=== PATIENT | female | born 1950 | race Caucasian/White ===

== ENCOUNTER → 2020-06-19 | Outpatient (CLI) | payer MEDICARE, OTHER | LOC: HEART 5 06-07 14:30 → CATH 10:00 | DX: R55 Syncope and collapse (principal) ==

== ENCOUNTER → 2020-11-14 | Outpatient (CLI) | payer MEDICARE | LOC: MAMO 10:18 | DX: Z12.31 Encounter for screening mammogram for malignant neoplasm of breast (principal); E04.1 Nontoxic single thyroid nodule | CPT/HCPCS: 76536; 77063; 77067 ==

== ENCOUNTER → 2020-11-17 | Outpatient (CLI) | payer MEDICARE, OTHER | LOC: EXRD 11:32 | DX: R06.02 Shortness of breath (principal) | CPT/HCPCS: 71046 ==

== ENCOUNTER → 2021-08-09 | Outpatient (CLI) | payer MEDICARE, OTHER | LOC: RAD 16:11 | DX: M25.562 Pain in left knee (principal); M25.462 Effusion, left knee | CPT/HCPCS: 73562 ==

== ENCOUNTER → 2021-11-15 | Outpatient (CLI) | payer MEDICARE, OTHER | LOC: US 07:33 | DX: R10.9 Unspecified abdominal pain (principal); R11.0 Nausea | CPT/HCPCS: 76705 ==

== ENCOUNTER → 2021-11-19 | Outpatient (CLI) | payer MEDICARE, OTHER | LOC: CT 09:30 | DX: R10.12 Left upper quadrant pain (principal); K76.0 Fatty (change of) liver, not elsewhere classified; R10.13 Epigastric pain | CPT/HCPCS: Q9967 ==

== ENCOUNTER → 2021-11-23 | Day surgery (SDC) | payer MEDICARE, OTHER ==
[~2021-11-23] VITALS: Ht 162.6 cm; Wt 84.8 kg
[~2021-11-23] MED LIST: BASE B,POLYETHYL1 GM MC; ESCITALOPRAM OX10 MG PO; FAMOTIDINE40 MG PO; GARLIC OIL1000 MG PO; HYDROCHLOROTHIA25 MG PO; LEVOTHYROXINE50 MCG PO; METFORMIN ER G500 MG PO; METOPROLOL SUCC25 MG PO; OMEPRAZOLE20 MG PO; VITAMIN B-121000 MCG PO; VOLTAREN 0.1%2.5 ML OP; XIIDRA EYEBOTH
== END | disposition home or self-care (01) ==
LOC: OR 05:52
DX: K31.9 Disease of stomach and duodenum, unspecified (principal); K29.70 Gastritis, unspecified, without bleeding; B96.81 Helicobacter pylori [H. pylori] as the cause of diseases classified elsewhere; K44.9 Diaphragmatic hernia without obstruction or gangrene; K21.9 Gastro-esophageal reflux disease without esophagitis; I10 Essential (primary) hypertension; E11.9 Type 2 diabetes mellitus without complications; E03.9 Hypothyroidism, unspecified; Z86.16 Personal history of COVID-19; Z86.73 Personal history of transient ischemic attack (TIA), and cerebral infarction without residual deficits; Z88.8 Allergy status to other drugs, medicaments and biological substances
CPT/HCPCS: 82962; J2704